=== PATIENT | female | born 1970 | race African-American/Black ===

== ENCOUNTER 2016-12-15 14:51 | Emergency (ER) | payer BC ==
[~2016-12-15] VITALS: Ht 157.5 cm; Wt 90.7 kg
[2016-12-15] MEDS ORDERED: IV NORMAL SALINE 1000ML BAG 1,000 ML IV ONE ×2 (16:15)
[2016-12-15] MEDS ORDERED: ONDANSETRON PF 4 MG/2 ML VIAL. IV ONE (16:15)
[2016-12-15 17:30] LABS: BASO % 1 % (0-3); EOS % 1 % (0-3); HEMATOCRIT 38.2 % (36.0-47.0); HEMOGLOBIN 12.4 g/dL (12.0-15.5); LYMPH # 1.3 x10^3/uL (1.0-4.8); LYMPH % 12 % (24-48); MEAN CORPUSCULAR HEMOGLOBIN 27 pg (25-35); MEAN CORPUSCULAR HGB CONC 33 g/dL (31-37); MEAN CORPUSCULAR VOLUME 81 fL (79-100); MONO % 6 % (0-9); NEUT % 81 % (31-73); PLATELET COUNT 234 x10^3/uL (140-400); RED BLOOD COUNT 4.69 x10^6/uL (3.50-5.40); WHITE BLOOD COUNT 10.6 x10^3/uL (4.0-11.0)
[2016-12-15 17:36] LABS: CALCIUM 9.5 mg/dL (8.5-10.1); CREATININE 0.9 mg/dL (0.6-1.0); GFR 81.6; POTASSIUM 3.8 mmol/L (3.5-5.1)
[2016-12-15 17:42] LABS: ALBUMIN 3.6 g/dL (3.4-5.0); ALBUMIN/GLOBULIN RATIO 0.8 (1.0-1.7); TOTAL BILIRUBIN 0.6 mg/dL (0.2-1.0); TOTAL PROTEIN 8.1 g/dL (6.4-8.2)
[2016-12-15 18:10] LABS: BILIRUBIN,URINE NEGATIVE (NEG); GLUCOSE,URINE NEGATIVE (NEG); NITRITE,URINE NEGATIVE (NEG); PROTEIN,URINE NEGATIVE (NEG-TRACE); UROBILINOGEN,URINE 0.2 mg/dL (0.2 mg/dL)
[2016-12-15 18:20] LABS: BACTERIA,URINE 0 /HPF (0-FEW); RBC,URINE 0 /HPF (0-2); SQUAMOUS EPITHELIAL CELL,UR MOD /LPF; WBC,URINE 0 /HPF (0-4)
[2016-12-15 20:07] VITALS: BP 152/72
[2016-12-15] MEDS ORDERED: ONDA4TAB10 SL (20:21)
--- NOTE | 2016-12-15 20:21 | PHYS DOC ---
Past Medical History Past Medical History: Hypertension Past Surgical History: , Tubal ligation Alcohol Use: None Drug Use: None Adult General Chief Complaint Chief Complaint: NAUSEA/VOMITING/DIARRHA HPI HPI Patient is a 46 year old female who presents here today complaining of nausea and vomiting times one day. Patient with history of hypertension. Patient has any diabetes liver lung or kidney problems. Patient not smoke drink or do drugs. Patient is not allergic to any medications. Patient reports she has an allergy to Phenergan. Patient has any fevers shakes chills patient has any diarrhea or abdominal pain. Patient has a dysuria frequency or urgency. Patient reports her last by mouth intake was yesterday. Patient has any melena or bright red blood per rectum. Patient denies any hematemesis or coffee-ground emesis. Patient reports that she tried to drink some liquids earlier today and vomiting approximate 5 minutes thereafter. Patient denies any prior surgeries. Review of systems Constitutional: Denies fever or chills Eyes: Denies change in visual acuity, redness, or eye pain All other review systems are negative except as documented in the history of present illness portion. Physical exam Constitutional: Well developed, well nourished, no acute distress, non-toxic appearance. HENT: Normocephalic, atraumatic, bilateral external ears normal, oropharynx moist, no oral exudates, nose normal. Eyes: conjunctiva normal, no discharge. Neck: Normal range of motion, no tenderness, supple, no stridor. Cardiovascular:Heart rate regular rhythm, Lungs & Thorax: Bilateral breath sounds clear to auscultation Abdomen: Bowel sounds normal, soft, no tenderness, no masses, no pulsatile masses. Abdomen was soft nontender nondistended no rebound or guarding. No Hammonds sign, no McBurney's point tenderness. Patient is not exhibiting any signs or symptoms O be consistent with an acute surgical abdomen. Skin: Warm, dry, Back: No tenderness, Extremities: No tenderness, no cyanosis, Neurologic: Alert and oriented X 3, normal motor function, normal sensory function, no focal deficits noted. Psychologic: Affect normal, judgement normal, mood normal. CBC, CMP, UA, lipase are all within normal limits. Assessment and plan This is a 46-year-old female who presents to the ER today secondary to nausea vomiting times one to 2 days now. Patient reports she has inability to tolerate by mouth solids or liquids at this point. Patient be given 2 L of normal saline the ER as well as Zofran and she reports that she feels significantly improved. His not exhibiting any signs or symptoms O be consistent with an acute surgical abdomen. Patient's repeat abdominal exam reveals no tenderness to palpation. Patient appears to be much better spirits after the IV fluids reports that she feels she has much more energy now and feels well to go home. Patient was given precautions regarding returning to the ER if she starts developing any discomfort her abdomen where she remains unable tolerate by mouth's after 24 hours. Patient was discharged home on Zofran. Current Medications Current Medications Current Medications Medications (Trade) Dose Ordered Sig/Cy Start Time Stop Time Status Last Admin Dose Admin Ondansetron HCl (Zofran) 4 mg 1X ONCE 12/15/16 16:15 12/15/16 16:17 DC 12/15/16 17:17 4 MG Sodium Chloride 1,000 ml @ 1,000 mls/hr 1X ONCE 12/15/16 16:15 12/15/16 17:14 DC 12/15/16 17:20 1,000 MLS/HR Allergies Allergies Allergies Coded Allergies Type Severity Reaction Last Updated Verified codeine Allergy Intermediate HIVES 12/15/16 Yes promethazine Allergy Intermediate NAUSEA AND VOMITING 12/15/16 Yes cephalexin Adverse Reaction Intermediate "CANT STOP MOVING" 12/15/16 Yes Current Patient Data Vital Signs Vital Signs Date Time Temp Pulse Resp B/P (MAP) Pulse Ox O2 Delivery O2 Flow Rate FiO2 12/15/16 19:36 62 180/77 (111) 100 Room Air 12/15/16 15:00 98.2 20 98.2 Lab Values Laboratory Tests Test 12/15/16 17:25 12/15/16 17:55 White Blood Count 10.6 x10^3/uL (4.0-11.0) Red Blood Count 4.69 x10^6/uL (3.50-5.40) Hemoglobin 12.4 g/dL (12.0-15.5) Hematocrit 38.2 % (36.0-47.0) Mean Corpuscular Volume 81 fL (79-100) Mean Corpuscular Hemoglobin 27 pg (25-35) Mean Corpuscular Hemoglobin Concent 33 g/dL (31-37) Red Cell Distribution Width 15.0 % (11.5-14.5) H Platelet Count 234 x10^3/uL (140-400) Neutrophils (%) (Auto) 81 % (31-73) H Lymphocytes (%) (Auto) 12 % (24-48) L Monocytes (%) (Auto) 6 % (0-9) Eosinophils (%) (Auto) 1 % (0-3) Basophils (%) (Auto) 1 % (0-3) Neutrophils # (Auto) 8.6 x10^3uL (1.8-7.7) H Lymphocytes # (Auto) 1.3 x10^3/uL (1.0-4.8) Monocytes # (Auto) 0.6 x10^3/uL (0.0-1.1) Eosinophils # (Auto) 0.1 x10^3/uL (0.0-0.7) Basophils # (Auto) 0.0 x10^3/uL (0.0-0.2) Sodium Level 139 mmol/L (136-145) Potassium Level 3.8 mmol/L (3.5-5.1) Chloride Level 104 mmol/L (98-107) Carbon Dioxide Level 27 mmol/L (21-32) Anion Gap 8 (6-14) Blood Urea Nitrogen 10 mg/dL (7-20) Creatinine 0.9 mg/dL (0.6-1.0) Estimated GFR (Cockcroft-Gault) 81.6 BUN/Creatinine Ratio 11 (6-20) Glucose Level 107 mg/dL (70-99) H Calcium Level 9.5 mg/dL (8.5-10.1) Total Bilirubin 0.6 mg/dL (0.2-1.0) Aspartate Amino Transferase (AST) 17 U/L (15-37) Alanine Aminotransferase (ALT) 23 U/L (14-59) Alkaline Phosphatase 62 U/L (46-116) Total Protein 8.1 g/dL (6.4-8.2) Albumin 3.6 g/dL (3.4-5.0) Albumin/Globulin Ratio 0.8 (1.0-1.7) L Lipase 66 U/L (73-393) L Urine Collection Type Unknown Urine Color Yellow Urine Clarity Clear Urine pH 6.0 Urine Specific [place] 1.015 Urine Protein Negative mg/dL (NEG-TRACE) Urine Glucose (UA) Negative mg/dL (NEG) Urine Ketones (Stick) 15 mg/dL (NEG) Urine Blood Negative (NEG) Urine Nitrite Negative (NEG) Urine Bilirubin Negative (NEG) Urine Urobilinogen Dipstick 0.2 mg/dL (0.2 mg/dL) Urine Leukocyte Esterase Negative (NEG) Urine RBC 0 /HPF (0-2) Urine WBC 0 /HPF (0-4) Urine Squamous Epithelial Cells Mod /LPF Urine Bacteria 0 /HPF (0-FEW) Urine Mucus Mod /LPF Laboratory Tests 12/15/16 17:25 Laboratory Tests 12/15/16 17:25 EKG EKG [] Radiology/Procedures Radiology/Procedures [] Course & Med Decision Making Course & Med Decision Making Pertinent Labs and Imaging studies reviewed. (See chart for details) [] Dragon Disclaimer Dragon Disclaimer This electronic medical record was generated, in whole or in part, using a voice recognition dictation system. Departure Departure Impression: Primary Impression: Nausea & vomiting Additional Impression: Dehydration Disposition: 01 HOME, SELF-CARE Condition: IMPROVED Referrals: NO PCP (PCP) Patient Instructions: Dehydration, Adult, Nausea and Vomiting Scripts Ondansetron (ZOFRAN ODT) 4 Mg Tab.rapdis 1 TAB SL Q6HRS Y for NAUSEA, #12 TAB Prov: ESTEPHANIA FIGUEROA MD 12/15/16 Problem Qualifiers ESTEPHANIA FIGUEROA MD Dec 15, 2016 20:21
== END 2016-12-15 20:34 | disposition home or self-care (01) ==
LOC: ER 14:51
DX: R11.2 Nausea with vomiting, unspecified (principal); E86.0 Dehydration; R30.0 Dysuria; R39.15 Urgency of urination; R35.0 Frequency of micturition; I10 Essential (primary) hypertension; Z88.8 Allergy status to other drugs, medicaments and biological substances; Z88.5 Allergy status to narcotic agent; Z88.1 Allergy status to other antibiotic agents
CPT/HCPCS: 36415; 80053; 81001; 83690; 85025; 96361; 96374; 99284; J2405; J7030